=== PATIENT | male | born 1985 | race Caucasian/White ===

== ENCOUNTER 2024-03-15 16:37 | Emergency (ER) | payer OTHER ==
[~2024-03-15] VITALS: Ht 180.3 cm; Wt 79.5 kg
[2024-03-15] MEDS ORDERED: PROZAC10 M2 PO (16:50)
[2024-03-15] MEDS ORDERED: Tetracaine 0.5% Ophth Soln 4 ML BOTTLE OD ONE (17:00)
[2024-03-15 17:35] VITALS: BP 123/82
== END 2024-03-15 17:35 | disposition home or self-care (01) ==
LOC: ED 16:37
DX: T15.12XA Foreign body in conjunctival sac, left eye, initial encounter (principal); W44.8XXA Other foreign body entering into or through a natural orifice, initial encounter